=== PATIENT | female | born 1960 | race African-American/Black ===

== ENCOUNTER → 2020-02-19 | Emergency (ER) | payer MEDICAID, OTHER ==
[~2020-02-19] VITALS: Ht 170.2 cm; Wt 77.1 kg
[2020-02-19 10:55] LABS: Basophils # (auto) 0.2 10 ^3/uL (0-0.2); Basophils % (auto) 4.1 % (0.0-2.0); Eosinophils # (auto) 0.1 10 ^3/uL (0-0.8); Eosinophils % (auto) 2.5 % (0.0-7.0); Hematocrit 39.6 % (36.0-46.0); Hemoglobin 13.4 g/dL (12.2-16.2); Lymphocytes % (auto) 51.8 % (10.0-50.0); Mean Corpuscular Hemoglobin 31.9 pg (28.0-32.0); Mean Corpuscular Hgb Conc. 33.7 g/dL (32.0-36.0); Mean Corpuscular Volume 94.6 fL (80.0-100.0); Monocytes # (auto) 0.4 10 ^3/uL (0-1.3); Monocytes % (auto) 7.2 % (0.0-12.0); Neutrophils % (auto) 34.4 % (37.0-80.0); Nucleated Red Blood Cells % 0.1 %; Platelet Count (auto) 336 10^3/uL (140-450); Red Blood Cells 4.19 10^6/uL (4.0-5.20); Red Cell Distribution Width 14.1 % (11.8-14.3); White Blood Cell 5.7 10^3/uL (4.4-10.8)
[2020-02-19 11:08] LABS: Albumin 4.2 g/dL (3.4-5.0); Anion Gap 2 (5-15); Blood Urea Nitrogen 12 mg/dL (7-18); Carbon Dioxide 29 mmol/L (21-32); Chloride 107 mmol/L (98-107); Glucose 93 mg/dL (74-106); Potassium 4.3 mmol/L (3.5-5.1); Sodium 138 mmol/L (136-145)
[2020-02-19 11:15] LABS: Alanine Aminotransferase 17 U/L (13-56); Alkaline Phosphatase 56 U/L (45-117); Aspartate Aminotransferase 15 U/L (15-37); BUN/Creatinine Ratio 14.1; Bilirubin, Total 0.6 mg/dL (0.2-1.0); GFR African American 88 mL/min; GFR Non-African American 73 mL/min; Total Protein 7.9 g/dL (6.4-8.2)
[2020-02-19 13:59] LABS: Urine WBC None Seen /hpf (0 - 5)
[2020-02-19 14:10] LABS: Urine Bacteria NONE SEEN /hpf (None Seen); Urine Blood Negative /uL (Negative); Urine Specific Gravity 1.015 (1.001-1.035)
[2020-02-19 16:03] VITALS: BP 161/71
== END | disposition home or self-care (01) ==
LOC: ER 10:22
DX: R53.1 Weakness (principal); R53.83 Other fatigue
CPT/HCPCS: 36415; 71046; 80053; 81001; 84443; 84484; 85025; 93005

== ENCOUNTER 2024-02-12 15:05 | Emergency (ER) | payer BC, MEDICAID ==
[~2024-02-12] VITALS: Ht 170.2 cm; Wt 71.8 kg
[2024-02-12 16:12] VITALS: BP 178/71; PULSE 61; RESP 16; TEMP 98.3; O2SAT 96
[2024-02-12] MEDS: ONDANSETRON ODT 4 MG TAB PO ONE (17:06)
[2024-02-12] MEDS: KETOROLAC TROMETH 30 MG/ML 1ML VIAL IM ONE (17:07)
[2024-02-12] MEDS ORDERED: LIDO5DIS21 TOP (17:18)
[2024-02-12] MEDS ORDERED: IBUP-1454 PO (17:18)
[2024-02-12] MEDS ORDERED: CYCL-837 PO (17:18)
== END 2024-02-12 17:52 | disposition home or self-care (01) ==
LOC: ER 16:27
DX: M54.59 Other low back pain (principal); Z79.1 Long term (current) use of non-steroidal anti-inflammatories (NSAID); Z98.890 Other specified postprocedural states; V89.2XXA Person injured in unspecified motor-vehicle accident, traffic, initial encounter; Y93.89 Activity, other specified; Y92.89 Other specified places as the place of occurrence of the external cause; Y99.8 Other external cause status
CPT/HCPCS: 72100; 96372; 99283; J1885; Q0162

== ENCOUNTER 2024-08-11 11:46 | Inpatient (IN) | payer BC ==
[~2024-08-11] VITALS: Ht 167.6 cm; Wt 66.6 kg
[~2024-08-11 11:46] MED LIST: CYCL-837 PO; IBUP-1454 PO; LIDO5DIS21 TOP
--- NOTE | 2024-08-11 12:26 | ED.PDOC ---
History of Present Illness HPI Comments 63-year-old female presents with a chief complaint of dizziness, weakness, and fatigue x 2 weeks. Patient was initially seen at urgent care, given 4 tablets of meclizine, and referred to the ER. Patient states "I feel extremely dizzy, weak, and tired". Patient mentions the dizziness is "like everything falls to one side then the other". Patient denies any trauma or injuries prior to onset of symptoms. No other symptoms or modifying factors present at this time. Chief Complaint: General Weakness Time Seen by MD: 12:15 Primary Care Provider: ? Reviewed Notes: Medications, Allergies Allergies: Coded Allergies: Morphine (Verified Allergy, Unknown, 08/11/24) Home Meds Active Scripts Lidocaine (LIDODERM 5% TOPICAL PATCH) 1 Patch Ph, 1 PATCH TOP DAILY for 30 Days, #30 PATCH 0 Refills Prov:ANGELINA COLLADO NP 02/12/24 Ibuprofen (Ibuprofen) 600 Mg Tab, 1 TAB PO TID for 10 Days, #30 TAB 0 Refills Prov:ANGELINA COLLADO NP 02/12/24 Cyclobenzaprine Hcl (Cyclobenzaprine Hcl) 5 Mg Tab, 1 TAB PO QHSP PRN for 30 Days, #30 TAB 0 Refills Prov:ANGELINA COLLADO NP 02/12/24 Information Source: Patient Mode of Arrival: Ambulatory Severity: Moderate Timing: Weeks Duration: Since onset Prehospital treatment: None Past Medical History PAST MEDICAL HISTORY: Denies 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 ROUND CORNER CUTTER OPERATOR History Family History Family History: Reviewed,noncontributory to illness Social History Smoker: Non-Smoker Alcohol: Denies ETOH Use Drugs: Denies Drug Use Lives In: Home Constitutional: reports: fatigue, weakness; denies: chills, diaphoresis, fever, malaise, sweats, others EENTM: denies: blurred vision, double vision, ear bleeding, ear discharge, ear drainage, ear pain, ear ringing, eye pain, eye redness, hearing loss, mouth pain , mouth swelling, nasal discharge, nose bleeding, nose congestion, nose pain, photophobia, tearing, throat pain, throat swelling, voice changes, others Respiratory: denies: cough, hemoptysis, orthopnea, SOB at rest, shortness of breath, SOB with excertion, stridor, wheezing, others Cardiovascular: denies: chest pain, dizzy spells, diaphoresis, Dyspnea on exertion, edema, irregular heart beat, left arm pain, lightheadedness, palpitations, PND, syncope, others Gastrointestinal: denies: abdomen distended, abdominal pain, blood streaked bowels, constipated, diarrhea, dysphagia, difficulty swallowing, hematemesis, melena, nausea, poor appetite, poor fluid intake, rectal bleeding, rectal pain, vomiting, others Genitourinary: denies: abnormal vagina bleeding, burning, dyspareunia, dysuria, flank pain, frequency, hematuria, incontinence, pain, , vagina discharge, urgency, others Neurological: reports: dizziness; denies: fainting, headache, left sided numbness, left sided weakness, numbness, paresthesia, pre-existing deficit, right sided numbness, right sided weakness, seizure, speech problems, tingling, tremors, weakness, others Musculoskeletal: denies: back pain, gout, joint pain, joint swelling, muscle pain, muscle stiffness, neck pain, others Integumetry: denies: bruises, change in color, change in hair/nails, dryness, laceration, lesions, lumps, rash, wounds, others Allergic/Immunocompromised: denies: Difficulty Healing, Frequent Infections, Hives, Itching, others Hematologic/Lymphatic: denies: anemia, blood clots, easy bleeding, easy bruising, swollen glands, others Endocrine: denies: excessive hunger, excessive sweating, excessive thirst, excessive urination, flushing, intolerance to cold, intolerance to heat, unexplained weight gain, unexplained weight loss, others Psychiatric: denies: anxiety, bipolar disorder, depression, hopeless, panic disorder, schizophrenia, sleepless, suicidal, others All Other Systems: Reviewed and Negative Physical Exam General Appearance: No Apparent Distress, Normal HEENT: Normal ENT Inspection, Pharynx Normal, TMs Normal Neck: Full Range of Motion, Non-Tender, Normal, Normal Inspection Respiratory: Chest Non-Tender, Lungs Clear, No Accessory Muscle Use, No Respiratory Distress, Normal Breath Sounds Cardiovascular: No Edema, No JVD, No Murmur, No Gallop, Normal Peripheral Pulses, Regular Rate/Rhythm Breast Exam: Deferred Gastrointestinal: No Organomegaly, Non Tender, No Pulsatile Mass, Normal Bowel Sounds, Soft Genitalia: Deferred Pelvic: Deferred Rectal: Deferred Extremities: No calf tenderness, Normal capillary refill, Normal inspection, Normal range of motion, Non-tender, No pedal edema Musculoskeletal : Apperance: Normal Neurologic: Alert, geriatric physical therapist II-XII nml as Tested, No Motor Deficits, Normal Affect, Normal Mood, No Sensory Deficits Cerebellar Function: Normal Reflexes: Normal Skin: Dry, Normal Color, Warm Lymphatic: No Adenopathy Was a procedure done? Was a procedure done?: No Differential Dx Considerations may include: ACS, CVA, electrolyte abnormality, infectious etiology X-Ray, Labs, Meds, VS Vital Signs Date Time Temp Pulse Resp B/P (MAP) Pulse Ox O2 Delivery O2 Flow Rate FiO2 08/11/24 14:03 97.9 65 16 153/77 (102) 100 97.9 08/11/24 12:03 60 08/11/24 12:01 98.5 59 17 151/76 (101) 98 Lab Test 08/11/24 14:07 08/11/24 12:51 Range/Units Troponin I High Sensitivity 4 3 L </=34 ng/L White Blood Count 6.9 4.4-10.8 10^3/uL Red Blood Count 4.06 4.0-5.20 10^6/uL Hemoglobin 12.4 12.2-16.2 g/dL Hematocrit 37.9 36.0-46.0 % Mean Corpuscular Volume 93.4 80.0-100.0 fL Mean Corpuscular Hemoglobin 30.5 28.0-32.0 pg Mean Corpuscular Hemoglobin Concent 32.6 32.0-36.0 g/dL Red Cell Distribution Width 14.2 11.8-14.3 % Platelet Count 359 140-450 10^3/uL Mean Platelet Volume 9.4 6.9-10.8 fL Neutrophils (%) (Auto) 56.9 37.0-80.0 % Lymphocytes (%) (Auto) 33.4 10.0-50.0 % Monocytes (%) (Auto) 6.9 0.0-12.0 % Eosinophils (%) (Auto) 1.9 0.0-7.0 % Basophils (%) (Auto) 0.9 0.0-2.0 % Neutrophils # (Auto) 3.9 1.6-8.6 10 ^3/uL Lymphocytes # (Auto) 2.3 0.4-5.4 10 ^3/uL Monocytes # (Auto) 0.5 0-1.3 10 ^3/uL Eosinophils # (Auto) 0.1 0-0.8 10 ^3/uL Basophils # (Auto) 0.1 0-0.2 10 ^3/uL Nucleated Red Blood Cells 0.0 % Sodium Level 141 136-145 mmol/L Potassium Level 3.8 3.5-5.1 mmol/L Chloride Level 103 98-107 mmol/L Carbon Dioxide Level 31 20-31 mmol/L Anion Gap 7 5-15 Blood Urea Nitrogen 14 9-23 mg/dL Creatinine 0.97 0.550-1.02 mg/dL Glomerular Filtration Rate Calc 65 >90 mL/min BUN/Creatinine Ratio 14.4 10.0-20.0 Serum Glucose 94 74-106 mg/dL Lactic Acid Level 0.8 0.4-2.0 mmol/L Calcium Level 10.5 H 8.7-10.4 mg/dL Time of 1ST Reevaluation: 12:45 Reevaluation 1ST: Unchanged Patient Education/Counseling: Diagnosis, Treatment, Prognosis Family Education/Counseling: Diagnosis, Treatment, Prognosis Departure 1 Departure Time of Disposition: 15:32 (Patient with worsening weakness and dizziness. Workup so far is benign have her follow up patient for further workup and expert consultation) Impression: Primary Impression: Generalized weakness Additional Impression: Dizziness Disposition: 09 ADMITTED INPATIENT Admit to: Med Surg Condition: Serious Critical Care Note Critical Care Time?: No Stability Stability form required: No Heart Score Heart Score: Heart Score Response (Comments) Value History N/A 0 EKG N/A 0 Age N/A 0 Risk Factors N/A 0 Troponin N/A 0 Total 0 I personally scribed for BHARATHI BOWEN MD ([email or web address]) on 08/11/24 at 12:26. Electronically submitted by Mahesh Resendez ([email or web address]). BHARATHI BOWEN MD Aug 11, 2024 12:26
--- NOTE | 2024-08-11 12:29 | ECG ---
[facility] Test Date: 2024-08-11 Test Time: 12:03:09 Pat Name: ELIAS AVILA Department: ER Room: Gender: F Pegger Dobby Looms: SOILA : 1960 Requested By: BHARATHI BOWEN Order Number: [id number] Reading MD: Measurements Intervals [place] Rate: 60 P: 66 W[place]: 132 QRS: 85 QRSD: 96 T: -16 QT: 420 QTc: 420 Interpretive Statements Sinus rhythm Borderline right axis deviation Nonspecific T abnormalities, inferior leads Please click the below link to view image of tracing.
--- NOTE | 2024-08-11 12:49 | DVH ---
CHEST RADIOGRAPH Indication: ams Technique: Single frontal view of the chest was obtained Comparison: None FINDINGS: Lines and Tubes: None Lungs: No focal consolidation. Pleura: No effusion. No pneumothorax. Cardiomediastinal contours: Unremarkable Bones: No acute osseous abnormality. IMPRESSION: 1. No acute cardiopulmonary disease.
--- NOTE | 2024-08-11 12:54 | DVH ---
EXAM: CT HEAD WITHOUT CONTRAST INDICATION: weakness TECHNIQUE: CT of the head without intravenous contrast. Radiation Dose : 1. Head: CT Dose: CTDI volume is 55.6 mGy. Dose-length product is 1094.1 mGy*cm The dose indicators for CT are the volume Computed Tomography (CT) Dose Index (CTDIvol) and the Dose Length Product (DLP), and are measured in units of mGy and mGy-cm, respectively. These indicators are not patient dose, but values generated from the CT scanner acquisition factors. The report includes radiation exposure data for exposures received during this examination. COMPARISON: None FINDINGS: There is no evidence of acute intracranial hemorrhage, extra-axial collection, mass effect, midline s hift, herniation or hydrocephalus. The ventricles, sulci and cisterns are age appropriate. The fontana-white differentiation is intact. The visualized paranasal sinuses and mastoid air cells are clear. The surrounding soft tissues and osseous structures are unremarkable. IMPRESSION: No acute intracranial abnormality. Radiation optimization: All CT scans at this facility use at least one of these dose optimization harish hniques: automated exposure control mA and/or kV adjustment per patient size (includes targeted exam s where dose is matched to clinical indication) or iterative reconstruction.
[2024-08-11 13:17] LABS: Basophils # (auto) 0.1 10 ^3/uL (0-0.2); Basophils % (auto) 0.9 % (0.0-2.0); Eosinophils # (auto) 0.1 10 ^3/uL (0-0.8); Eosinophils % (auto) 1.9 % (0.0-7.0); Hematocrit 37.9 % (36.0-46.0); Hemoglobin 12.4 g/dL (12.2-16.2); Lymphocytes # (auto) 2.3 10 ^3/uL (0.4-5.4); Lymphocytes % (auto) 33.4 % (10.0-50.0); Mean Corpuscular Hemoglobin 30.5 pg (28.0-32.0); Mean Corpuscular Hgb Conc. 32.6 g/dL (32.0-36.0); Mean Corpuscular Volume 93.4 fL (80.0-100.0); Monocytes # (auto) 0.5 10 ^3/uL (0-1.3); Monocytes % (auto) 6.9 % (0.0-12.0); Neutrophils # (auto) 3.9 10 ^3/uL (1.6-8.6); Neutrophils % (auto) 56.9 % (37.0-80.0); Platelet Count (auto) 359 10^3/uL (140-450); Red Blood Cells 4.06 10^6/uL (4.0-5.20); Red Cell Distribution Width 14.2 % (11.8-14.3); White Blood Cell 6.9 10^3/uL (4.4-10.8)
[2024-08-11 13:32] LABS: Anion Gap 7 (5-15); Carbon Dioxide 31 mmol/L (20-31); Chloride 103 mmol/L (98-107); Potassium 3.8 mmol/L (3.5-5.1); Sodium 141 mmol/L (136-145)
[2024-08-11 13:37] LABS: Glucose 94 mg/dL (74-106)
[2024-08-11 13:38] LABS: BUN/Creatinine Ratio 14.4 (10.0-20.0); Blood Urea Nitrogen 14 mg/dL (9-23)
[2024-08-11 13:41] LABS: Calcium 10.5 mg/dL (8.7-10.4)
[2024-08-11 15:35] LABS: Urine Bacteria None Seen /hpf (None Seen)
[2024-08-11 16:11] LABS: Urine Blood 2+ /uL (Negative); Urine Budding Yeast OCCASIONAL /hpf (None Seen); Urine Clarity Clear (Clear); Urine Protein, UAD 1+ (Negative); Urine Specific Gravity 1.008 (1.001-1.035); Urine Squamous Epithelial Cell FEW /hpf (<5); Urine Urobilinogen Normal (Negative); Urine WBC 4 /HPF (0-5); Urine WBC Clumps PRESENT /hpf (None Seen)
[2024-08-11 16:12] LABS: Urine Color STRAW (Yellow)
[2024-08-11] MEDS ORDERED: ONDANSETRON HCL 4 MG/2 ML VIAL IV PRN (16:30)
[2024-08-11] MEDS ORDERED: HYDROcodone-ACET 5/325MG TAB PO PRN (16:30)
[2024-08-11] MEDS ORDERED: DOCUSATE SOD 100 MG CAP PO PRN (16:30)
[2024-08-11] MEDS ORDERED: ACETAMINOPHEN 325 MG TAB PO PRN (16:30)
--- NOTE | 2024-08-11 16:59 | DVHHP2 ---
History of Present Illness Reason for Visit: Generalized weakness History of Present Illness The patient is a 63-year-old female who denies past medical history presented to [facility] ED with complaint of generalized weakness, fatigue, and dizziness for the past 2 weeks. Patient reports, she initially went to urgent care and was given meclizine, and referred to our facility ED. patient was seen and evaluated in the ED, laboratory data shows WBC 6.9, platelets 359, sodium 141, potassium 3.8, BUN 14, creatinine 0.97, GFR 65, glucose 94, calcium 10.5, troponin 3, blood pressure 163/78, heart rate 65, temperature 98.0 F, O2 saturation 98% on room air. Head CT showed no acute intracranial abnormality. Please see medication orders section in the computer. On my assessment, patient denied chest pain, no headache, no diaphoresis, no shortness of breaths, no nausea, no vomiting, no fever, no chills. Patient was admitted for further evaluation and medical management. Past Medical History Denies past medical history Past Surgical History Family History Reviewed, noncontributory to the management of this case. Past Social History The patient lives at home, denies smoking, alcohol or illicit drugs abuse. Review of Systems Constitutional: Yes: Weakness, Other (Fatigue); No: Fever, Chills, Sweats, Malaise Eyes: No: Pain, Vision change, Conjunctivae inflammation, Eyelid inflammation, Other, Redness ENT: No: Ear pain, Ear discharge, Nose pain, Nose discharge, Nose congestion, Mouth pain, Mouth swelling, Throat pain, Throat swelling, Other Respiratory: No: Cough, Dry, Shortness of breath, SOB with excertion, Wheezing, Hemoptysis, Pleuritic Pain, Sputum, Wheezing, Other Cardiovascular: No: Chest Pain, Palpitations, Orthopnea, Paroxysmal Noc. Dyspnea, Edema, Lt Headedness, Other Gastrointestinal: No: Nausea, Vomiting, Abdominal Pain, Diarrhea, Constipation, Melena, Hematochezia, Other Genitourinary: No Dysuria, No Frequency, No Incontinence, No Hematuria, No Retention, No Other Musculoskeletal: No: other, neck pain, shoulder pain, arm pain, back pain, hand pain, leg pain, foot pain Skin: No: Rash, Lesions, Jaundice, Bruising, Other Neurological: Other (Dizziness); No: Weakness, Numbness, Incoordination, Change in speech, Confusion, Seizures Allergies: Coded Allergies: Morphine (Verified Allergy, Unknown, 08/11/24) Medications Current Medications Medications Dose Ordered Sig/Noe Route Start Time Stop Time Status Last Admin Dose Admin Sodium Chloride 10 ml Q8HR IV 08/11/24 22:00 UNV Acetaminophen/ Hydrocodone Bitart 1 tab Q4HP PRN PO 08/11/24 16:30 UNV Ondansetron HCl 4 mg Q4HP PRN IV 08/11/24 16:30 UNV Docusate Sodium 100 mg BIDPRN PRN PO 08/11/24 16:30 UNV Acetaminophen 650 mg Q6HP PRN PO 08/11/24 16:30 UNV Exam Vital Signs Vital Signs Date Time Temp Pulse Resp B/P (MAP) Pulse Ox O2 Delivery O2 Flow Rate FiO2 08/11/24 16:11 98.0 61 15 163/78 (106) 98 98.0 General Appearance: Alert, Oriented X3, Cooperative, No acute distress HEENT: Atraumatic, PERRLA, EOMI, Mucous membr. moist/pink Respiratory: Clear to auscultation, Normal air movement Cardiovascular: Regular rate, Normal S1, Normal S2, No murmurs Abdominal: Normal bowel sounds, Soft, No tenderness, No hepatospenomegaly, No masses Extremities: No clubbing, No cyanosis, No edema, Normal pulses, No tenderness /swelling Skin: No rashes, No breakdown, No significant lesion Neuro: Normal speech, Normal tone, Sensation intact, Cranial nerves 3-12 NL, Reflexes 2+, Other (Generalized weakness) Psych/Mental Status: Mental status NL, Mood NL Labs/Xrays Labs Test 08/11/24 16:09 08/11/24 14:58 08/11/24 12:51 Range/Units Urine Color Straw Yellow Urine Clarity Clear Clear Urine pH 7.0 5.0-9.0 Urine Specific [place] 1.008 1.001-1.035 Urine Protein 1+ H Negative Urine Ketones Negative Negative Urine Blood 2+ H Negative /uL Urine Nitrite Negative Negative Urine Bilirubin Negative Negative Urine Urobilinogen Normal Negative mg/dL Urine Leukocyte Esterase Negative Negative /uL Urine RBC 8 0 - 4 /hpf Urine WBC Clumps Present None Seen /hpf Urine Microscopic WBC 4 0-5 /HPF Urine Squamous Epithelial Cells Few <5 /hpf Urine Bacteria None seen None Seen /hpf Urine Yeast (Budding) Occasional None Seen /hpf Urine Glucose Normal Normal mg/dL White Blood Count 6.9 4.4-10.8 10^3/uL Red Blood Count 4.06 4.0-5.20 10^6/uL Hemoglobin 12.4 12.2-16.2 g/dL Hematocrit 37.9 36.0-46.0 % Mean Corpuscular Volume 93.4 80.0-100.0 fL Mean Corpuscular Hemoglobin 30.5 28.0-32.0 pg Mean Corpuscular Hemoglobin Concent 32.6 32.0-36.0 g/dL Red Cell Distribution Width 14.2 11.8-14.3 % Platelet Count 359 140-450 10^3/uL Mean Platelet Volume 9.4 6.9-10.8 fL Neutrophils (%) (Auto) 56.9 37.0-80.0 % Lymphocytes (%) (Auto) 33.4 10.0-50.0 % Monocytes (%) (Auto) 6.9 0.0-12.0 % Eosinophils (%) (Auto) 1.9 0.0-7.0 % Basophils (%) (Auto) 0.9 0.0-2.0 % Neutrophils # (Auto) 3.9 1.6-8.6 10 ^3/uL Lymphocytes # (Auto) 2.3 0.4-5.4 10 ^3/uL Monocytes # (Auto) 0.5 0-1.3 10 ^3/uL Eosinophils # (Auto) 0.1 0-0.8 10 ^3/uL Basophils # (Auto) 0.1 0-0.2 10 ^3/uL Nucleated Red Blood Cells 0.0 % Sodium Level 141 136-145 mmol/L Potassium Level 3.8 3.5-5.1 mmol/L Chloride Level 103 98-107 mmol/L Carbon Dioxide Level 31 20-31 mmol/L Anion Gap 7 5-15 Blood Urea Nitrogen 14 9-23 mg/dL Creatinine 0.97 0.550-1.02 mg/dL Glomerular Filtration Rate Calc 65 >90 mL/min BUN/Creatinine Ratio 14.4 10.0-20.0 Serum Glucose 94 74-106 mg/dL Lactic Acid Level 0.8 0.4-2.0 mmol/L Calcium Level 10.5 H 8.7-10.4 mg/dL PATIENT: ELIAS AVILA ACCT: [id number] UNIT: [id number] : 1960 LOC: ER ROOM / BED: / AGE / SEX: 63 / F ADM STATUS: REG ER SERVICE [id number] ORDERING PHYSICIAN: BHARATHI BOWEN MD PROCEDURE(s): HWOCT - HEAD WITHOUT CONTRAST REASON: weakness ORDER NUMBER(s): [id number], ACCESSION NUMBER(s): [id number] EXAM: CT HEAD WITHOUT CONTRAST INDICATION: weakness TECHNIQUE: CT of the head without intravenous contrast. Radiation Dose: 1. Head: CT Dose: CTDI volume is 55.6 mGy. Dose-length product is 1094.1 mGy*cm The dose indicators for CT are the volume Computed Tomography (CT) Dose Index (CTDIvol) and the Dose Length Product (DLP), and are measured in units of mGy and mGy-cm, respectively. These indicators are not patient dose, but values generated from the CT scanner acquisition factors. The report includes radiation exposure data for exposures received during this examination. COMPARISON: None FINDINGS: There is no evidence of acute intracranial hemorrhage, extra-axial collection, mass effect, midline shift, herniation or hydrocephalus. The ventricles, sulci and cisterns are age appropriate. The fontana-white differentiation is intact. The visualized paranasal sinuses and mastoid air cells are clear. The surrounding soft tissues and osseous structures are unremarkable. IMPRESSION: No acute intracranial abnormality. ORDERING PHYSICIAN: BHARATHI BOWEN MD PROCEDURE(s): CXRP - CHEST PORTABLE REASON: ams ORDER NUMBER(s): [id number], ACCESSION NUMBER(s): [id number] CHEST RADIOGRAPH Indication: ams Technique: Single frontal view of the chest was obtained Comparison: None FINDINGS: Lines and Tubes: None Lungs: No focal consolidation. Pleura: No effusion. No pneumothorax. Cardiomediastinal contours: Unremarkable Bones: No acute osseous abnormality. IMPRESSION: 1. No acute cardiopulmonary disease. Assessment/Plan Assessment/Plan Generalized weakness Dizziness and giddiness Plan 1. Admit to telemetry unit 2. Breathing treatment 3. Pain control management 4. Management of fluids and electrolytes 5. Consultation for hospitalist 6. Diagnostic tests head CT 7. DVT prophylaxis-on SCDs 8. Repeat labs CBC, CMP in a.m. 9. Continue with current medical management 10. Treatment plan discussed with patient and RN. Patient verbalized understanding. Plan discussed with: Patient, Other (RN) My Orders Orders - ANA CRISTINA VALENCIA DNP Procedure Category Date Status Time Allergies GEORGE 08/11/24 In Process 16:29 Code Status CODE 08/11/24 Transmitted 16:29 Sodium Chloride Lock PHA 08/11/24 Logged (Saline Lock Ns) 22:00 Oxygen Per Hour RT 08/11/24 Transmitted 16:29 Hydrocodone-Acet PHA 08/11/24 Logged 5/325mg Tab ([place] 16:30 Ondansetron Hcl PHA 08/11/24 Logged (Zofran) 16:30 Docusate Sodium PHA 08/11/24 Logged Capsule (Colace 16:30 Fall Risk Precautions GEORGE 08/11/[address] 16:29 Complete Blood Count LAB 08/12/24 Verified 04:00 Comprehensive LAB 08/12/24 Verified Metabolic Panel 04:00 Cardiac DIET 08/11/24 Transmitted Diet-2gna,Lofat,Lochol Dinner Condition: Serious GEORGE 08/11/24 In Process 16:29 Acetaminophen Tablet PHA 08/11/24 Logged (Tylenol Tablet) 16:30 Sequential GEORGE 08/11/24 In Process Compression Device Problem List: (1) Generalized weakness (2) Dizziness and giddiness Date of Service: Aug 11, 2024 Billing Provider: ANA CRISTINA VALENCIA DNP Common Visit Codes: 91277-[id number] INP/OBS CARE (HIGH) ANA CRISTINA VALENCIA DNP Aug 11, 2024 16:58
[2024-08-11] MEDS ORDERED: MORPHINE SULFATE INJ 2 MG/ml SYRG IV PRN (17:00)
[2024-08-11] MEDS ORDERED: NITROGLYCERIN 0.4 MG SL TAB SL PRN (17:00)
[2024-08-11] MEDS ORDERED: hydrALAZINE HCL 20 MG/ML VL IV PRN (18:00)
[2024-08-11 21:53] VITALS: BP 150/72; PULSE 60; RESP 16; TEMP 98.7; O2SAT 100
[2024-08-11] MEDS: SODIUM CHLOR 0.9% PF (SALINE LOCK) 10ML VIAL/SYR IV SCH (22:07)
[2024-08-11 22:53] VITALS: PULSE 60; RESP 16; O2SAT 100
[2024-08-12] VITALS (7 sets, daily range): BP systolic 105–150; BP diastolic 54–64; PULSE 52–68; RESP 15–18; TEMP 36.8; O2SAT 96–98
[2024-08-12 07:44] LABS: Basophils # (auto) 0.1 10 ^3/uL (0-0.2); Basophils % (auto) 1.1 % (0.0-2.0); Eosinophils # (auto) 0.2 10 ^3/uL (0-0.8); Hematocrit 36.1 % (36.0-46.0); Hemoglobin 11.7 g/dL (12.2-16.2); Lymphocytes % (auto) 41.1 % (10.0-50.0); Mean Corpuscular Hemoglobin 30.1 pg (28.0-32.0); Mean Corpuscular Hgb Conc. 32.3 g/dL (32.0-36.0); Mean Corpuscular Volume 93.2 fL (80.0-100.0); Monocytes # (auto) 0.5 10 ^3/uL (0-1.3); Monocytes % (auto) 10.5 % (0.0-12.0); Neutrophils # (auto) 2.1 10 ^3/uL (1.6-8.6); Neutrophils % (auto) 43.3 % (37.0-80.0); Nucleated Red Blood Cells % 0.2 %; Platelet Count (auto) 341 10^3/uL (140-450); Red Blood Cells 3.87 10^6/uL (4.0-5.20); Red Cell Distribution Width 14.3 % (11.8-14.3)
[2024-08-12 07:55] LABS: Alanine Aminotransferase 15 U/L (7-40); Albumin 3.8 g/dL (3.2-4.8); Alkaline Phosphatase 56 U/L (46-116); Anion Gap 9 (5-15); BUN/Creatinine Ratio 16.8 (10.0-20.0); Blood Urea Nitrogen 16 mg/dL (9-23); Carbon Dioxide 27 mmol/L (20-31); Chloride 106 mmol/L (98-107); Glucose 93 mg/dL (74-106); Potassium 3.9 mmol/L (3.5-5.1); Sodium 142 mmol/L (136-145)
[2024-08-12 07:56] LABS: Bilirubin, Total 0.4 mg/dL (0.2-1.0); Total Protein 6.5 g/dL (5.7-8.2)
[2024-08-12 08:09] LABS: Aspartate Aminotransferase 11 U/L (13-40)
[2024-08-12] MEDS ORDERED: LACTULOSE 20Gm/30ML SOLN PO PRN (16:00)
[2024-08-12] MEDS ORDERED: MECL12.586 PO (16:46)
--- NOTE | 2024-08-12 16:59 | DVHDSRES ---
Discharge Summary Date of Admission Resident Creating Document: RADHA BRAVO DT Aug 11, 2024 at 16:57 Date of Discharge: Aug 12, 2024 Admitting Diagnosis Dizziness, weakness and fatigue rule out TIA/stroke Labs/Diagnostic Data: Laboratory Results Test 08/12/24 06:18 08/11/24 16:09 08/11/24 14:58 08/11/24 12:51 White Blood Count 5.0 10^3/uL (4.4-10.8) Red Blood Count 3.87 10^6/uL (4.0-5.20) Hemoglobin 11.7 g/dL (12.2-16.2) Hematocrit 36.1 % (36.0-46.0) Mean Corpuscular Volume 93.2 fL (80.0-100.0) Mean Corpuscular Hemoglobin 30.1 pg (28.0-32.0) Mean Corpuscular Hemoglobin Concent 32.3 g/dL (32.0-36.0) Red Cell Distribution Width 14.3 % (11.8-14.3) Platelet Count 341 10^3/uL (140-450) Mean Platelet Volume 9.6 fL (6.9-10.8) Neutrophils (%) (Auto) 43.3 % (37.0-80.0) Lymphocytes (%) (Auto) 41.1 % (10.0-50.0) Monocytes (%) (Auto) 10.5 % (0.0-12.0) Eosinophils (%) (Auto) 4.0 % (0.0-7.0) Basophils (%) (Auto) 1.1 % (0.0-2.0) Neutrophils # (Auto) 2.1 10 ^3/uL (1.6-8.6) Lymphocytes # (Auto) 2.0 10 ^3/uL (0.4-5.4) Monocytes # (Auto) 0.5 10 ^3/uL (0-1.3) Eosinophils # (Auto) 0.2 10 ^3/uL (0-0.8) Basophils # (Auto) 0.1 10 ^3/uL (0-0.2) Nucleated Red Blood Cells 0.2 % Sodium Level 142 mmol/L (136-145) Potassium Level 3.9 mmol/L (3.5-5.1) Chloride Level 106 mmol/L (98-107) Carbon Dioxide Level 27 mmol/L (20-31) Anion Gap 9 (5-15) Blood Urea Nitrogen 16 mg/dL (9-23) Creatinine 0.95 mg/dL (0.550-1.02) Glomerular Filtration Rate Calc 67 mL/min (>90) BUN/Creatinine Ratio 16.8 (10.0-20.0) Serum Glucose 93 mg/dL (74-106) Hemoglobin A1c 5.3 % A1C (<5.7) Calcium Level 10.0 mg/dL (8.7-10.4) Total Bilirubin 0.4 mg/dL (0.2-1.0) Aspartate Amino Transferase (AST) 11 U/L (13-40) Alanine Aminotransferase (ALT) 15 U/L (7-40) Alkaline Phosphatase 56 U/L (46-116) Total Protein 6.5 g/dL (5.7-8.2) Albumin 3.8 g/dL (3.2-4.8) Thyroid Stimulating Hormone (TSH) 3.75 uIU/mL (0.55-4.78) Troponin I High Sensitivity 4 ng/L (</=34) Urine Color Straw (Yellow) Urine Clarity Clear (Clear) Urine pH 7.0 (5.0-9.0) Urine Specific Buhl 1.008 (1.001-1.035) Urine Protein 1+ (Negative) Urine Ketones Negative (Negative) Urine Blood 2+ /uL (Negative) Urine Nitrite Negative (Negative) Urine Bilirubin Negative (Negative) Urine Urobilinogen Normal mg/dL (Negative) Urine Leukocyte Esterase Negative /uL (Negative) Urine RBC 8 /hpf (0 - 4) Urine WBC Clumps Present /hpf (None Seen) Urine Microscopic WBC 4 /HPF (0-5) Urine Squamous Epithelial Cells Few /hpf (<5) Urine Bacteria None seen /hpf (None Seen) Urine Yeast (Budding) Occasional /hpf (None Urine Glucose Normal mg/dL (Normal) Lactic Acid Level 0.8 mmol/L (0.4-2.0) Other Laboratory Tests 08/12/24 06:18 Brief Hx & Hospital Course: HPIThe patient is a 63-year-old female who denies past medical history presented to [facility] ED with complaint of generalized weakness, fatigue, and dizziness for the past 2 weeks. Patient reports, she initially went to urgent care and was given meclizine, and referred to our facility ED. patient was seen and evaluated in the ED, laboratory data shows WBC 6.9, platelets 359, sodium 141, potassium 3.8, BUN 14, creatinine 0.97, GFR 65, glucose 94, calcium 10.5, troponin 3, blood pressure 163/78, heart rate 65, temperature 98.0 F, O2 saturation 98% on room air. Head CT showed no acute intracranial abnormality. Please see medication orders section in the computer. On my assessment, patient denied chest pain, no headache, no diaphoresis, no shortness of breaths, no nausea, no vomiting, no fever, no chills. Patient was admitted for further evaluation and medical managem Hospital course-patient came to the ER due to dizziness, fatigue, weakness. Patient was admitted to the hospital rule out TIA or stroke. CT head- No acute intracranial abnormality. CXR no acute cardiopulmonary disease. Ruled out orthostatic hypotension. 6 minutes walking revealed good maintenance of blood pressure and also pulse over 64, while pulse during sleeping was 50. Sumi hallux bike maneuver was positive for Venous paroxysmal positional vertigo. Patient is adamant about going home. Patient was advised to follow up with the primary care physician in 1 week for further evaluation and care of weakness and tiredness. Patient is to follow up with CBC, fecal occult blood test, colonoscopy. Patient was advised to follow MATT maneuver at home to help with the BPPV. Patient is being discharged home with meclizine 12.5 mg by mouth 2 times a day. Patient's meds were sent to the pharmacy electronically. Patient was hemodynamically stable on discharge. Discharge diagnosis Dizziness likely due to benign paroxysmal positional vertigo Rule out orthostatic hypotension/chronotropic dysfunction Rule out TIA Weakness and fatigue History of hypothyroidism-TSH within normal limit Discharge plan -meclizine 12.5 mg by mouth 3 times a day -please follow Matt maneuver at home to help with the benign paroxysmal positional vertigo Please follow up with the primary care physician with labs of CBC, CMP, fecal occult blood test, and also for colonoscopy for further evaluation and care of tiredness and fatigue - Operations or Procedures [address] [address] Ph: [phone] DIAGNOSTIC IMAGING Diagnostic Imaging Report : [id number] Signed PATIENT: ELIAS AVILA ACCT: [id number] UNIT: [id number] : 1960 LOC: ER ROOM / BED: / AGE / SEX: 63 / F ADM STATUS: REG ER SERVICE 1219 ORDERING PHYSICIAN: BHARATHI BOWEN MD PROCEDURE(s): HWOCT - HEAD WITHOUT CONTRAST REASON: weakness ORDER NUMBER(s): [id number], ACCESSION NUMBER(s): [id number] EXAM: CT HEAD WITHOUT CONTRAST INDICATION: weakness TECHNIQUE: CT of the head without intravenous contrast. Radiation Dose : 1. Head: CT Dose: CTDI volume is 55.6 mGy. Dose-length product is 1094.1 mGy*cm The dose indicators for CT are the volume Computed Tomography (CT) Dose Index (CTDIvol) and the Dose Length Product (DLP), and are measured in units of mGy and mGy-cm, respectively. These indicators are not patient dose, but values generated from the CT scanner acquisition factors. The report includes radiation exposure data for exposures received during this examination. COMPARISON: None FINDINGS: There is no evidence of acute intracranial hemorrhage, extra-axial collection, mass effect, midline shift, herniation or hydrocephalus. The ventricles, sulci and cisterns are age appropriate. The fontana-white differentiation is intact. The visualized paranasal sinuses and mastoid air cells are clear. The surrounding soft tissues and osseous structures are unremarkable. IMPRESSION: No acute intracranial abnormality. Radiation optimization: All CT scans at this facility use at least one of these dose optimization techniques: automated exposure control mA and/or kV adjustment per patient size (includes targeted exams where dose is matched to clinical indication) or iterative reconstruction. ATED BY: BUTCH MOSELEY MD DICTATED DATE/TIME: 08/11/24 1251 SIGNED BY: BUTCH MOSELEY MD SIGNED DATE/TIME: 08/11/24 125 CC: [place] [id number] Ph: [phone] DIAGNOSTIC IMAGING Diagnostic Imaging Report : [id number] Signed PATIENT: ELIAS AVILA ACCT: [id number] UNIT: [id number] : 1960 LOC: ER ROOM / BED: / AGE / SEX: 63 / F ADM STATUS: REG ER SERVICE 1219 ORDERING PHYSICIAN: BHARATHI BOWEN MD PROCEDURE(s): CXRP - CHEST PORTABLE REASON: ams ORDER NUMBER(s): [id number], ACCESSION NUMBER(s): [id number] CHEST RADIOGRAPH Indication: ams Technique: Single frontal view of the chest was obtained Comparison: None FINDINGS: Lines and Tubes: None Lungs: No focal consolidation. Pleura: No effusion. No pneumothorax. Cardiomediastinal contours: Unremarkable Bones: No acute osseous abnormality. IMPRESSION: 1. No acute cardiopulmonary disease. ATED BY: LARISA ROMO MD DICTATED DATE/TIME: 08/11/241245 SIGNED BY: LARISA ROMO MD SIGNED DATE/TIME: 08/11/241245 CC: Condition at Discharge: Stable Final Diagnosis/Problems List Dizziness likely due to benign paroxysmal positional vertigo Rule out orthostatic hypotension/chronotropic dysfunction Weakness and fatigue History of hypothyroidism-TSH within normal limit Discharge Disposition: Home Discharge Instruct/Medications Diet: Regular Activity: Light activity Follow Up/Referral: -please follow Matt maneuver at home to help with the benign paroxysmal positional vertigo Please follow up with the primary care physician with labs of CBC, CMP, fecal occult blood test, and also for colonoscopy for further evaluation and care of tiredness and fatigue Medications: -meclizine 12.5 mg by mouth 3 times a day -please follow Matt maneuver at home to help with the benign paroxysmal positional vertigo Please follow up with the primary care physician with labs of CBC, CMP, fecal occult blood test, and also for colonoscopy for further evaluation and care of tiredness and fatigue Discharge Statement: "Patient was advised to return to the ER or call 911 if any headaches, dizziness, shortness of breath, chest pain, abdominal pain, bleeding, fevers, or worsening of medical condition. Patient was counseled about treatment plan, medications, possible side effects, patientverbalized understanding. All questions were answered to the best of my ability. This discharge took greater then 30 minutes in planning, reviewing documentation, counseling the patient, and discussing with other team members." ASSESSMENT ASSESSMENT Assessment Dizziness likely due to BPPV Orthostatic hypotension ruled out Date of Service: Aug 12, 2024 Billing Provider: TAYLOR GARCIA MD Common Visit Codes: 66345-KZM/OBS DISCH DAY >30min RAIZA PATTERSON RESIDENT Aug 12, 2024 16:59 TAYLOR GARCIA MD Aug 13, 2024 00:02
[2024-08-14 11:09] LABS: Hepatitis B Surface Antigen Negative (Negative)
[2024-08-14 11:11] LABS: Hepatitis C Antibody Negative (Negative)
== END 2024-08-12 17:40 | disposition home or self-care (01) | DRG 149 ==
LOC: ER 11:46 → OVERFLOW 16:57 → TELE-WESTW 16:58
PROVIDERS: ADMIT Student in an Organized Health Care Education/Training Program; ATTEND Emergency Medicine
DX: R42 Dizziness and giddiness (principal); E03.9 Hypothyroidism, unspecified; Z88.5 Allergy status to narcotic agent; Z98.891 History of uterine scar from previous surgery; Z79.899 Other long term (current) drug therapy; Z79.1 Long term (current) use of non-steroidal anti-inflammatories (NSAID)
CPT/HCPCS: 36415; 70450; 71045; 80048; 80053; 81001; 83036; 83605; 84443; 84484; 85025; 86803; 87340; 93005; 96360; G0378

== ENCOUNTER 2024-08-15 06:23 | Inpatient (IN) | payer BC ==
[2024-08-15] VITALS (9 sets, daily range): BP systolic 131–153; BP diastolic 50–74; PULSE 19–80; RESP 16–19; TEMP 97.5–97.9; O2SAT 96–99
[~2024-08-15] VITALS: Ht 170.2 cm; Wt 69.5 kg
[~2024-08-15 06:23] MED LIST changes: +MECL12.586 PO
--- NOTE | 2024-08-15 06:50 | ED.PDOC ---
HPI Comments 63-year-old female with no reported PMHx presents with a chief complaint of chest pain x 2 days with associated neck pain. Patient states that her pain is localized to her left chest wall, nonradiating, describes as sharp, and has been present for 2 days. Patient is poor historian and denies having a PMD. Patient was recently seen here at this ER earlier in the week for dizziness/generalized weakness. No other symptoms or modifying factors present at this time. Chief Complaint: Chest Pain Time Seen by MD: 06:33 Primary Care Provider: ? Reviewed Notes: Medications, Allergies Allergies: Coded Allergies: Morphine (Verified Allergy, Unknown, 08/11/24) Home Meds Active Scripts Meclizine Hcl (Meclizine Hcl) 12.5 Mg Tab, 1 TAB PO TID for 7 Days, #21 TAB 3 Refills Prov:RAIZA PATTERSON RESIDENT 08/12/24 Lidocaine (LIDODERM 5% TOPICAL PATCH) 1 Patch Ph, 1 PATCH TOP DAILY for 30 Days, #30 PATCH 0 Refills Prov:ANGELINA COLLADO NP 02/12/24 Ibuprofen (Ibuprofen) 600 Mg Tab, 1 TAB PO TID for 10 Days, #30 TAB 0 Refills Prov:ANGELINA COLLADO NP 02/12/24 Cyclobenzaprine Hcl (Cyclobenzaprine Hcl) 5 Mg Tab, 1 TAB PO QHSP PRN for 30 Days, #30 TAB 0 Refills Prov:ANGELINA COLLADO NP 02/12/24 Information Source: Patient Mode of Arrival: Ambulatory Severity: Moderate Timing: Days Duration: Since onset Prehospital treatment: None Location: Chest (L) Radiation: No Radiation Quality: Sharp Onset: At Rest Past Medical History PAST MEDICAL HISTORY: Denies Surgical History: VACCINE MANAGER History: No Pertinent VACCINE MANAGER History Family History Family History: Reviewed,noncontributory to illness Social History Smoker: Non-Smoker Alcohol: Denies ETOH Use Drugs: Denies Drug Use Lives In: Home Constitutional: denies: chills, diaphoresis, fatigue, fever, malaise, sweats, weakness, others EENTM: denies: blurred vision, double vision, ear bleeding, ear discharge, ear drainage, ear pain, ear ringing, eye pain, eye redness, hearing loss, mouth pain, mouth swelling, nasal discharge, nose bleeding, nose congestion, nose pain, photophobia, tearing, throat pain, throat swelling, voice changes, others Respiratory: denies: cough, hemoptysis, orthopnea, SOB at rest, shortness of breath, SOB with excertion, stridor, wheezing, others Cardiovascular: reports: chest pain; denies: dizzy spells, diaphoresis, Dyspnea on exertion, edema, irregular heart beat, left arm pain, lightheadedness, palpitations, PND, syncope, others Gastrointestinal: denies: abdomen distended, abdominal pain, blood streaked bowels, constipated, diarrhea, dysphagia, difficulty swallowing, hematemesis, melena, nausea, poor appetite, poor fluid intake, rectal bleeding, rectal pain, vomiting, others Genitourinary: denies: abnormal vagina bleeding, burning, dyspareunia, dysuria, flank pain, frequency, hematuria, incontinence, pain, , vagina discharge, urgency, others Neurological: denies: dizziness, fainting, headache, left sided numbness, left sided weakness, numbness, paresthesia, pre-existing deficit, right sided numbness, right sided weakness, seizure, speech problems, tingling, tremors, weakness, others Musculoskeletal: reports: neck pain; denies: back pain, gout, joint pain, joint swelling, muscle pain, muscle stiffness, others Integumetry: denies: bruises, change in color, change in hair/nails, dryness, laceration, lesions, lumps, rash, wounds, others Allergic/Immunocompromised: denies: Difficulty Healing, Frequent Infections, Hives, Itching, others Hematologic/Lymphatic: denies: anemia, blood clots, easy bleeding, easy bruising, swollen glands, others Endocrine: denies: excessive hunger, excessive sweating, excessive thirst, excessive urination, flushing, intolerance to cold, intolerance to heat, unexplained weight gain, unexplained weight loss, others Psychiatric: denies: anxiety, bipolar disorder, depression, hopeless, panic disorder, schizophrenia, sleepless, suicidal, others All Other Systems: Reviewed and Negative Physical Exam General Appearance: Moderate Distress, Normal HEENT: Normal ENT Inspection, Pharynx Normal, TMs Normal Neck: Full Range of Motion, Non-Tender, Normal, Normal Inspection Respiratory: Chest Non-Tender, Lungs Clear, No Accessory Muscle Use, No Respiratory Distress, Normal Breath Sounds Cardiovascular: No Edema, No JVD, No Murmur, No Gallop, Normal Peripheral Pulses, Regular Rate/Rhythm Breast Exam: Deferred Gastrointestinal: No Organomegaly, Non Tender, No Pulsatile Mass, Normal Bowel Sounds, Soft Genitalia: Deferred Pelvic: Deferred Rectal: Deferred Extremities: No calf tenderness, Normal capillary refill, Normal inspection, Normal range of motion, Non-tender, No pedal edema Musculoskeletal : Apperance: Normal Neurologic: Alert, negotiator sales II-XII nml as Tested, No Motor Deficits, Normal Affect, Normal Mood, No Sensory Deficits Cerebellar Function: Normal Reflexes: Normal Skin: Dry, Normal Color, Warm Peripheral Pulses: 3+ Radial (R), 3+ Radial (L) Lymphatic: No Adenopathy Was a procedure done? Was a procedure done?: No CP Differential Dx Differential Diagnosis: A-fib, A-Flutter, Angina, Anxiety / Panic Attack, Atrial Dysrhythmia, Electrolyte Disorder X-Ray, Labs, Meds, VS Vital Signs Date Time Temp Pulse Resp B/P (MAP) Pulse Ox O2 Delivery O2 Flow Rate FiO2 08/15/24 08:33 98.2 78 18 157/86 (109) 98 98.2 08/15/24 08:33 78 08/15/24 07:24 74 08/15/24 06:30 85 08/15/24 06:26 98.9 89 20 172/68 (102) 97 Lab Test 08/15/24 07:39 08/15/24 06:35 Range/Units Troponin I High Sensitivity 5 5 </=34 ng/L White Blood Count 9.4 # 4.4-10.8 10^3/uL Red Blood Count 4.05 4.0-5.20 10^6/uL Hemoglobin 12.2 12.2-16.2 g/dL Hematocrit 37.9 36.0-46.0 % Mean Corpuscular Volume 93.5 80.0-100.0 fL Mean Corpuscular Hemoglobin 30.1 28.0-32.0 pg Mean Corpuscular Hemoglobin Concent 32.2 32.0-36.0 g/dL Red Cell Distribution Width 14.3 11.8-14.3 % Platelet Count 377 140-450 10^3/uL Mean Platelet Volume 9.5 6.9-10.8 fL Neutrophils (%) (Auto) 61.3 37.0-80.0 % Lymphocytes (%) (Auto) 27.9 10.0-50.0 % Monocytes (%) (Auto) 8.5 0.0-12.0 % Eosinophils (%) (Auto) 1.5 0.0-7.0 % Basophils (%) (Auto) 0.8 0.0-2.0 % Neutrophils # (Auto) 5.8 1.6-8.6 10 ^3/uL Lymphocytes # (Auto) 2.6 0.4-5.4 10 ^3/uL Monocytes # (Auto) 0.8 0-1.3 10 ^3/uL Eosinophils # (Auto) 0.1 0-0.8 10 ^3/uL Basophils # (Auto) 0.1 0-0.2 10 ^3/uL Nucleated Red Blood Cells 0.2 % Sodium Level 142 136-145 mmol/L Potassium Level 3.8 3.5-5.1 mmol/L Chloride Level 105 98-107 mmol/L Carbon Dioxide Level 26 20-31 mmol/L Anion Gap 11 5-15 Blood Urea Nitrogen 16 9-23 mg/dL Creatinine 0.98 0.550-1.02 mg/dL Glomerular Filtration Rate Calc 64 >90 mL/min BUN/Creatinine Ratio 16.3 10.0-20.0 Serum Glucose 99 74-106 mg/dL Calcium Level 10.0 8.7-10.4 mg/dL Patient alert. Complaining of chest pain. Vitals stable. Answering questions. Is difficult to get a good history. WBC within normal limits pain Hemoglobin within normal limits. Blood pressure elevated. Was given clonidine. Cardiac marker within normal limits. Possibly will need MRI. Explained to the patient. Continue monitoring. Time of 1ST Reevaluation: 07:03 Reevaluation 1ST: Unchanged Patient Education/Counseling: Diagnosis, Treatment, Prognosis Family Education/Counseling: Diagnosis, Treatment, Prognosis Departure 1 Departure Time of Disposition: 08:53 Impression: Primary Impression: Chest pain of unknown etiology Additional Impression: Hypertensive urgency Disposition: ADMITTED INPATIENT Admit to: Med Surg Condition: Guarded Critical Care Note Critical Care Time?: Yes (45 min-critical care time only) Critical care comment: Continues to have chest pain blood pressure elevated Stability Stability form required: No Heart Score Heart Score: Heart Score Response (Comments) Value History Slightly Suspicious 0 EKG Normal 0 Age 45-64 1 Risk Factors >3 or Hx ASHD 2 Troponin Normal limit 0 Total 3 I personally scribed for JOSE BELL MD ([email or web address]) on 08/15/24 at 06:50. Electronically submitted by Mahesh Resendez ([email or web address]). JOSE BELL MD Aug 15, 2024 06:50
[2024-08-15 07:12] LABS: Basophils # (auto) 0.1 10 ^3/uL (0-0.2); Basophils % (auto) 0.8 % (0.0-2.0); Eosinophils # (auto) 0.1 10 ^3/uL (0-0.8); Eosinophils % (auto) 1.5 % (0.0-7.0); Hematocrit 37.9 % (36.0-46.0); Hemoglobin 12.2 g/dL (12.2-16.2); Lymphocytes # (auto) 2.6 10 ^3/uL (0.4-5.4); Lymphocytes % (auto) 27.9 % (10.0-50.0); Mean Corpuscular Hemoglobin 30.1 pg (28.0-32.0); Mean Corpuscular Hgb Conc. 32.2 g/dL (32.0-36.0); Mean Corpuscular Volume 93.5 fL (80.0-100.0); Monocytes # (auto) 0.8 10 ^3/uL (0-1.3); Monocytes % (auto) 8.5 % (0.0-12.0); Neutrophils # (auto) 5.8 10 ^3/uL (1.6-8.6); Neutrophils % (auto) 61.3 % (37.0-80.0); Nucleated Red Blood Cells % 0.2 %; Platelet Count (auto) 377 10^3/uL (140-450); Red Blood Cells 4.05 10^6/uL (4.0-5.20); Red Cell Distribution Width 14.3 % (11.8-14.3); White Blood Cell 9.4 10^3/uL (4.4-10.8)
[2024-08-15 07:23] LABS: Chloride 105 mmol/L (98-107); Potassium 3.8 mmol/L (3.5-5.1); Sodium 142 mmol/L (136-145)
[2024-08-15 07:24] LABS: Anion Gap 11 (5-15); Carbon Dioxide 26 mmol/L (20-31)
[2024-08-15 07:29] LABS: BUN/Creatinine Ratio 16.3 (10.0-20.0); Blood Urea Nitrogen 16 mg/dL (9-23); Glucose 99 mg/dL (74-106)
--- NOTE | 2024-08-15 08:16 | DVH ---
INDICATION: sob TECHNIQUE: Frontal view of the chest. COMPARISON: XY CHEST PORTABLE on DOS: 08/11/24 FINDINGS: The heart and mediastinal contours are grossly unremarkable. There is no evidence of pleural diseas e. The lungs are clear. The bony structures of the chest are intact without fracture. IMPRESSION: 1. No evidence of acute disease.
[2024-08-15] MEDS: cloNIDine HCL 0.1 MG TAB PO ONE (09:00)
[2024-08-15] MEDS: ASPirin 325 MG TAB PO ONE (09:24)
[2024-08-15 09:26] LABS: Urine Bacteria FEW /hpf (None Seen); Urine Blood 2+ /uL (Negative); Urine Clarity Clear (Clear); Urine Color Light-Yellow (Yellow); Urine Mucus FEW (None Seen); Urine Protein, UAD 2+ (Negative); Urine Specific Gravity 1.016 (1.001-1.035); Urine Squamous Epithelial Cell FEW /hpf (<5); Urine Urobilinogen Normal (Negative); Urine WBC 11 /HPF (0-5); Urine pH 7.5 (5.0-9.0)
[2024-08-15] MEDS ORDERED: ACETAMINOPHEN 325 MG TAB PO PRN (11:00)
[2024-08-15] MEDS ORDERED: ONDANSETRON HCL 4 MG/2 ML VIAL IV PRN (11:00)
[2024-08-15] MEDS ORDERED: NITROGLYCERIN 0.4 MG SL TAB SL PRN ×2 (11:00)
[2024-08-15 11:28] LABS: Triglycerides 80 mg/dL (< 150)
[2024-08-15 11:30] LABS: Cholesterol 197 mg/dL (< 200); HDL Cholesterol 52 mg/dL (40-59)
[2024-08-15 11:31] LABS: LDL Cholesterol 135 mg/dL (< 100)
--- NOTE | 2024-08-15 11:38 | DVH ---
CT ABDOMEN AND PELVIS WITHOUT CONTRAST CLINICAL HISTORY: epigastric pain TECHNIQUE: Multiple contiguous axial images of the abdomen and pelvis without intravenous contrast. The images were reformatted degenerate coronal and sagittal reconstructions. All CT scans at this medical facility are performed using dose modulation techniques as appropriate t o a performed exam including the following:Automated exposure control was utilized; adjustment of the MA and/or KV according to patient size; and use of iterative reconstruction technique. Radiation Dose Information: CT Dose: CTDI volume is 9.94 mGy. Dose-length product is 470.92 mGy*cm Comparison: None FINDINGS: Evaluation of the abdomen and pelvis is limited without intravenous contrast. 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 The liver, gallbladder, pancreas, kid neys, adrenal glands, appear within normal limits. There is no gross evidence of abdominal lymphadenopathy. There is no free fluid or free air. The stomach grossly appears unremarkable. The small and large bowel loops demonstrate normal caliber and appear within normal limits.. The appendix not seen in the right lower quadrant abdomen. There are no secondary signs of acute appendicitis. The abdominal aorta and IVC appear within normal limits. The bladder appears unremarkable for the degree of distention. The uterus is not seen and is likely s urgically absent.. There is no gross evidence of a pelvic mass. There is no free fluid collection. Lung bases are clear. There is no acute osseous abnormality. IMPRESSION: 1. There is no acute process in the abdomen and pelvis. 2. 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 HS:Y
--- NOTE | 2024-08-15 11:57 | DVHHP2 ---
History of Present Illness Reason for Visit: Chest pain History of Present Illness Antonia Yin is a 63-year-old female with past medical history of vertigo, C- section and pericardiectomy over 30 years ago at [facility] who presents to the ED today for chest pain that radiates to the right neck and shoulder x2 days. Upon examination patient is pointing to her epigastric area states that it radiates around the midsection. Patient reports the pain is 10/10 woke her up from sleep is constant and discomfort. Patient reports that it is worse with movement but if she is resting the pain decreases. Patient's daughter at the bedside sade states that she was recently admitted and diagnosed with vertigo went home and starting having epigastric pain when she got home. Patient denies any shortness of breath, fever, chills, asthma recent injury or trauma, recent illnesses, nausea, vomiting, diarrhea, lightheadedness, weakness, and dizziness. OFFICER CAPTAIN: Vertigo Past Surgical History: , Other (Pericardiectomy) Smoke: No ALCOHOL: none Drugs: None Lives: with Family Domestic Violence: Neg Review of Systems Cardiovascular: Chest Pain Musculoskeletal: neck pain, shoulder pain Allergies: Coded Allergies: Morphine (Verified Allergy, Unknown, 08/11/24) Exam Vital Signs Vital Signs Date Time Temp Pulse Resp B/P (MAP) Pulse Ox O2 Delivery O2 Flow Rate FiO2 08/15/24 09:36 98.3 68 17 157/76 (103) 99 98.3 General Appearance: Alert, Oriented X3, Cooperative, mild distress HEENT: Atraumatic, PERRLA, EOMI, Mucous membr. moist/pink Respiratory: Normal air movement Cardiovascular: Regular rate, Normal S1, Normal S2, No murmurs Abdominal: Normal bowel sounds, Soft, No tenderness, No hepatospenomegaly, No masses Extremities: No clubbing, No cyanosis, No edema, Normal pulses, No tenderness/swelling Skin: No rashes, No breakdown, No significant lesion Neuro: Normal gait, Normal speech, Strength at 5/5 X4 ext, Normal tone, Sensation intact Psych/Mental Status: Mental status NL, Mood NL Labs/Xrays Labs Test 08/15/24 08:17 08/15/24 07:39 08/15/24 06:35 Range/Units Urine Color Light-yellow Yellow Urine Clarity Clear Clear Urine pH 7.5 5.0-9.0 Urine Specific [place] 1.016 1.001-1.035 Urine Protein 2+ H Negative Urine Ketones Negative Negative Urine Blood 2+ H Negative /uL Urine Nitrite Negative Negative Urine Bilirubin Negative Negative Urine Urobilinogen Normal Negative mg/dL Urine Leukocyte Esterase Negative Negative /uL Urine RBC 69 0 - 4 /hpf Urine Microscopic WBC 11 H 0-5 /HPF Urine Squamous Epithelial Cells Few <5 /hpf Urine Bacteria Few H None Seen /hpf Urine Mucus Few None Seen Urine Glucose Normal Normal mg/dL Troponin I High Sensitivity 5 </=34 ng/L White Blood Count 9.4 # 4.4-10.8 10^3/uL Red Blood Count 4.05 4.0-5.20 10^6/uL Hemoglobin 12.2 12.2-16.2 g/dL Hematocrit 37.9 36.0-46.0 % Mean Corpuscular Volume 93.5 80.0-100.0 fL Mean Corpuscular Hemoglobin 30.1 28.0-32.0 pg Mean Corpuscular Hemoglobin Concent 32.2 32.0-36.0 g/dL Red Cell Distribution Width 14.3 11.8-14.3 % Platelet Count 377 140-450 10^3/uL Mean Platelet Volume 9.5 6.9-10.8 fL Neutrophils (%) (Auto) 61.3 37.0-80.0 % Lymphocytes (%) (Auto) 27.9 10.0-50.0 % Monocytes (%) (Auto) 8.5 0.0-12.0 % Eosinophils (%) (Auto) 1.5 0.0-7.0 % Basophils (%) (Auto) 0.8 0.0-2.0 % Neutrophils # (Auto) 5.8 1.6-8.6 10 ^3/uL Lymphocytes # (Auto) 2.6 0.4-5.4 10 ^3/uL Monocytes # (Auto) 0.8 0-1.3 10 ^3/uL Eosinophils # (Auto) 0.1 0-0.8 10 ^3/uL Basophils # (Auto) 0.1 0-0.2 10 ^3/uL Nucleated Red Blood Cells 0.2 % Sodium Level 142 136-145 mmol/L Potassium Level 3.8 3.5-5.1 mmol/L Chloride Level 105 98-107 mmol/L Carbon Dioxide Level 26 20-31 mmol/L Anion Gap 11 5-15 Blood Urea Nitrogen 16 9-23 mg/dL Creatinine 0.98 0.550-1.02 mg/dL Glomerular Filtration Rate Calc 64 >90 mL/min BUN/Creatinine Ratio 16.3 10.0-20.0 Serum Glucose 99 74-106 mg/dL Calcium Level 10.0 8.7-10.4 mg/dL INDICATION: sob TECHNIQUE: Frontal view of the chest. COMPARISON: XY CHEST PORTABLE on DOS: 08/11/24 FINDINGS: The heart and mediastinal contours are grossly unremarkable. There is no evidence of pleural disease. The lungs are clear. The bony structures of the chest are intact without fracture. IMPRESSION: 1. No evidence of acute disease. CT ABDOMEN AND PELVIS WITHOUT CONTRAST CLINICAL HISTORY: epigastric pain TECHNIQUE: Multiple contiguous axial images of the abdomen and pelvis without intravenous contrast. The images were reformatted degenerate coronal and sagittal reconstructions. All CT scans at this medical facility are performed using dose modulation techniques as appropriate to a performed exam including the following:Automated exposure control was utilized; adjustment of the MA and/or KV according to patient size; and use of iterative reconstruction technique. Radiation Dose Information: CT Dose: CTDI volume is 9.94 mGy. Dose-length product is 470.92 mGy*cm Comparison: None FINDINGS: Evaluation of the abdomen and pelvis is limited without intravenous contrast. 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 The liver, gallbladder, pancreas, kidneys, adrenal glands, appear within normal limits. There is no gross evidence of abdominal lymphadenopathy. There is no free fluid or free air. The stomach grossly appears unremarkable. The small and large bowel loops demonstrate normal caliber and appear within normal limits.. The appendix not seen in the right lower quadrant abdomen. There are no secondary signs of acute appendicitis. The abdominal aorta and IVC appear within normal limits. The bladder appears unremarkable for the degree of distention. The uterus is not seen and is likely surgically absent.. There is no gross evidence of a pelvic mass. There is no free fluid collection. Lung bases are clear. There is no acute osseous abnormality. IMPRESSION: 1. There is no acute process in the abdomen and pelvis. 2. 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 Assessment/Plan Assessment/Plan Assessment Chest pain Epigastric pain probable GERD Proteinuria ?Small nodular structure in the left upper quadrant abdomen History of vertigo History of History pericardectomy greater than 30 years ago at [facility] Admit to tele Antihypertensive Pain management Antiemetics Chest x-ray noted Troponin negative x2 Aspirin and statin started CT abdomen and pelvis UDS Echo TSH A1c Lipid panel No home medications to reconcile Diet Plan discussed with: Patient My Orders Orders - KARTIKBISIBonilla Kip BEDSPREAD SEAMER Procedure Category Date Status Time Ct Ab Pel Wo Con-No CT 08/15/24 Logged Oral Or Iv 10:35 Thyroid Stimulating LAB 08/15/24 Transmitted Hormone 10:59 Lipid Panel LAB 08/15/24 Transmitted 10:59 Echo 2d Mode Cardiac US 08/15/24 Transmitted DOP 10:59 Drug Screen LAB 08/15/24 Transmitted 10:59 Hemoglobin A1c LAB 08/15/24 Transmitted 10:59 Admit ADMIT 08/15/24 Transmitted 10:59 Code Status CODE 08/15/24 Transmitted 10:59 Cnc Machine Setter GEORGE 08/15/24 Transmitted 10:59 Cardiac DIET 08/15/24 Transmitted Diet-2gna,Lofat,Lochol Lunch Aspirin Tablet PHA 08/16/24 Transmitted 10:00 Lipitor 40mg Hs PHA 08/15/24 Transmitted Hi-Intensity 22:00 Acetaminophen Tablet PHA 08/15/24 Transmitted (Tylenol Tablet) 11:00 Complete Blood Count LAB 08/16/24 Verified 04:00 Basic Metabolic Panel LAB 08/16/24 Verified 04:00 Magnesium LAB 08/16/24 Verified 04:00 Nitroglycerin PHA 08/15/24 Transmitted Sublingual (Ntrostat 11:00 Ondansetron Hcl PHA 08/15/24 Transmitted (Zofran) 11:00 Electrocardigram EKG 08/16/24 Transmitted 04:00 Troponin-I Hs LAB 08/15/24 Transmitted 10:59 Cardiac GEORGE 08/15/24 Transmitted Rehabilitation - Outpa Nitroglycerin PHA 08/15/24 Transmitted Sublingual (Ntrostat 11:00 Stat Ekg For Chest [facility] 08/15/24 Transmitted Pain 10:59 Notify Of Changes GEORGE 08/15/24 Transmitted From Base 10:59 Cashier Receptionist For GEORGE 08/15/24 Transmitted 24 Hours 10:59 Emergency Dysrhythmia [facility] 08/15/24 Transmitted Protocol 10:59 Rhythm Strips Once GEORGE 08/15/24 Transmitted Every Shift 10:59 Oxygen By Nasal RT 08/15/24 Transmitted Cannula 10:59 Date of Service: Aug 15, 2024 Billing Provider: MARIAELENA VERDUGO Common Visit Codes: [id number] INP/OBS CARE (HIGH) MARIAELENA VERDUGO Aug 15, 2024 11:57
[2024-08-15 13:13] LABS: Amphetamine Screen, Urine Neg (NEGATIVE); Barbiturate Scree,Urine Neg (NEGATIVE); Benzodiazephine Screen, Urine Neg (NEGATIVE); Cannabinoid Screen, Urine Neg (NEGATIVE); Cocaine Screen, Urine Neg (NEGATIVE); Opiate Scree,Urine Neg (NEGATIVE); Phencyclidine Screen, Urine Neg (NEGATIVE)
[2024-08-15] MEDS ORDERED: HYDROcodone-ACET 5/325MG TAB PO PRN (18:00)
[2024-08-15] MEDS ORDERED: HYDROmorphone HCL 2 MG/ML VL/or syr IV PRN (18:00)
[2024-08-15] MEDS: ATORVASTATIN 20 MG TAB PO SCH (22:58)
[2024-08-16] VITALS: BP 140/53; PULSE 62; RESP 18; TEMP 97.5; O2SAT 96
[2024-08-16 05:00] VITALS: BP 150/69; PULSE 43; RESP 18; TEMP 97.6; O2SAT 100
[2024-08-16 06:35] LABS: Basophils # (auto) 0 10 ^3/uL (0-0.2); Basophils % (auto) 1.1 % (0.0-2.0); Eosinophils # (auto) 0.2 10 ^3/uL (0-0.8); Eosinophils % (auto) 5.2 % (0.0-7.0); Hematocrit 33.9 % (36.0-46.0); Hemoglobin 11.2 g/dL (12.2-16.2); Lymphocytes # (auto) 2.1 10 ^3/uL (0.4-5.4); Lymphocytes % (auto) 45.7 % (10.0-50.0); Mean Corpuscular Hemoglobin 30.8 pg (28.0-32.0); Mean Corpuscular Hgb Conc. 33.1 g/dL (32.0-36.0); Mean Corpuscular Volume 93.1 fL (80.0-100.0); Monocytes # (auto) 0.6 10 ^3/uL (0-1.3); Monocytes % (auto) 12.7 % (0.0-12.0); Neutrophils # (auto) 1.6 10 ^3/uL (1.6-8.6); Neutrophils % (auto) 35.3 % (37.0-80.0); Nucleated Red Blood Cells % 0.3 %; Platelet Count (auto) 330 10^3/uL (140-450); Red Blood Cells 3.64 10^6/uL (4.0-5.20); Red Cell Distribution Width 14.1 % (11.8-14.3); White Blood Cell 4.5 10^3/uL (4.4-10.8)
[2024-08-16 06:53] LABS: Chloride 105 mmol/L (98-107); Potassium 3.6 mmol/L (3.5-5.1); Sodium 140 mmol/L (136-145)
[2024-08-16 06:54] LABS: Anion Gap 7 (5-15); Calcium 9.3 mg/dL (8.7-10.4); Carbon Dioxide 28 mmol/L (20-31)
[2024-08-16 06:59] LABS: BUN/Creatinine Ratio 13.5 (10.0-20.0); Blood Urea Nitrogen 13 mg/dL (9-23); Glucose 94 mg/dL (74-106); Magnesium 2.1 mg/dL (1.6-2.6)
[2024-08-16] MEDS ORDERED: ASPirin 81 mg TAB PO SCH (10:00)
--- NOTE | 2024-08-16 11:05 | ECG ---
[facility] Test Date: 2024-08-15 Test Time: 17:28:23 Pat Name: ELIAS AVILA Department: Respiratoy Room: [address] [place] [address] 8 Gender: F Expanded Duty Dental Assistant: RASHAD : 1960 Requested By: JOSE BELL Order Number: [id number] Reading MD: Derrek Kilpatrick Measurements Intervals [place] Rate: 55 P: 179 LA: 148 QRS: 159 QRSD: 92 T: 66 QT: 440 QTc: 421 Interpretive Statements Right and left arm electrode reversal, interpretation assumes no reversal Sinus or ectopic atrial rhythm Right axis deviation Abnrm T, probable ischemia, anterolateral lds Minimal ST elevation, inferior leads Baseline wander in lead(s) V3 Electronically Signed On 08-16-2024 15:59:56 PST by Derrek Kilpatrick Please click the below link to view image of tracing.
--- NOTE | 2024-08-16 11:05 | ECG ---
[facility] Test Date: 2024-08-15 Test Time: 17:29:18 Pat Name: ELIAS AVILA Department: Respiratoy Room: [address] [place] [address] 8 Gender: F Purification Supervisor: RASHAD : 1960 Requested By: JOSE BELL Order Number: [id number] Reading MD: Derrek Kilpatrick Measurements Intervals [place] Rate: 53 P: 177 MA: 148 QRS: 161 QRSD: 99 T: 71 QT: 446 QTc: 419 Interpretive Statements Right and left arm electrode reversal, interpretation assumes no reversal Sinus or ectopic atrial rhythm Right axis deviation Consider left ventricular hypertrophy Abnrm T, consider ischemia, anterolateral lds Electronically Signed On 08-16-2024 16:00:04 PST by Derrek Kilpatrick Please click the below link to view image of tracing.
--- NOTE | 2024-08-19 14:24 | ECG ---
[facility] Test Date: 2024-08-15 Test Time: 07:24:53 Pat Name: ELIAS AVILA Department: ED Room: [address] [place] [address] 8 Gender: F Picu Nurse: SOHA : 1960 Requested By: JOSE BELL Order Number: [id number] Reading MD: Derrek Kilpatrick Measurements Intervals [place] Rate: 74 P: 26 [place]: 122 QRS: 50 QRSD: 91 T: 34 QT: 386 QTc: 429 Interpretive Statements Sinus rhythm LVH with secondary repolarization abnormality Lateral ST changes suggest ischemia Electronically Signed On 08-23-2024 16:44:10 PST by Derrek Kilpatrick Please click the below link to view image of tracing.
--- NOTE | 2024-08-19 14:31 | ECG ---
[facility] Test Date: 2024-08-15 Test Time: 06:30:52 Pat Name: ELIAS AVILA Department: ER Room: [address] [place] [address] 8 Gender: F Automotive Glass Technician: TOMMIE : 1960 Requested By: MARIAELENA VERDUGO Order Number: [id number] Reading MD: Derrek Kilpatrick Measurements Intervals [place] Rate: 85 P: 48 MD: 131 QRS: 50 QRSD: 85 T: 241 QT: 348 QTc: 414 Interpretive Statements Sinus rhythm Probable left atrial enlargement LVH with secondary repolarization abnormality Electronically Signed On 08-23-2024 16:43:07 PST by Derrek Kilpatrick Please click the below link to view image of tracing.
== END 2024-08-16 07:00 | disposition left against medical advice (07) | DRG 392 ==
LOC: ER 06:23 → OVERFLOW 10:59 → TELE-EAST 17:09
DX: K21.9 Gastro-esophageal reflux disease without esophagitis (principal); R80.9 Proteinuria, unspecified; I16.0 Hypertensive urgency; Z53.29 Procedure and treatment not carried out because of patient's decision for other reasons; M54.2 Cervicalgia; Z88.5 Allergy status to narcotic agent; Z79.899 Other long term (current) drug therapy; Z98.891 History of uterine scar from previous surgery
CPT/HCPCS: 36415; 71045; 74176; 80048; 80061; 80307; 81001; 83735; 84443; 84484; 85025; 87081; 93005; 99291; G0378